=== PATIENT | male | born 1985 | race Caucasian/White ===

== ENCOUNTER 2022-11-05 22:30 | Emergency (ER) | payer BC, MEDICAID ==
[~2022-11-05] VITALS: Ht 182.9 cm; Wt 88.5 kg
[2022-11-05 23:59] LABS: BASOPHILS % (AUTO) 0.1 % (0.0-2.0); EOSINOPHILS % (AUTO) 0.3 % (0.0-6.0); HEMATOCRIT 39 % (39-51); HEMOGLOBIN 12.8 g/dL (13.5-17.5); LYMPHOCYTES % (AUTO) 11.8 % (20.0-44.0); MEAN CORPUSCULAR HEMOGLOBIN 29 PG (26.0-33.0); MEAN CORPUSCULAR HGB CONC 33 g/dl (31.0-36.0); MEAN CORPUSCULAR VOLUME 88 fL (80-96); MONOCYTES # (AUTO) 0.7 K/uL (0.1-1.30); NEUTROPHILS # (AUTO) 6.4 K/uL (1.8-8.9); NEUTROPHILS % (AUTO) 78.8 % (43.0-81.0); PLATELET COUNT (AUTO) 379 K/uL (150-450); RED BLOOD CELL COUNT(AUTO) 4.46 MIL/uL (4.5-6.0); RED CELL DISTRIBUTION WIDTH 14.4 % (11.5-15.0); WHITE BLOOD COUNT (AUTO) 8.2 K/uL (4.3-11.0)
[2022-11-06 00:05] LABS: APPEARANCE,URINE CLEAR (CLEAR); BILIRUBIN,URINE 1+ (NEGATIVE); BLOOD, URINE NEGATIVE Ery/uL (NEGATIVE); COLOR,URINE DARK YELLOW (YELLOW); KETONES,URINE TRACE mg/dL (NEGATIVE); LEUKOCYTE ESTERASE ,URINE NEGATIVE (NEGATIVE); NITRITE, URINE NEGATIVE (NEGATIVE); PH,URINE 5.5 (5.0-8.0); PROTEIN,URINE 2+ mg/dl (NEGATIVE); UGLUCOSE NEGATIVE (NEGATIVE)
[2022-11-06 00:17] LABS: CARBON DIOXIDE 23 mmol/L (21-32); CHLORIDE 101 mmol/L (98-107); CREATININE 1.3 mg/dL (0.6-1.3); GLUCOSE 87 mg/dL (74-106); POTASSIUM 4.2 mmol/L (3.5-5.1); SODIUM SERUM 136 mmol/L (136-145); UREA NITROGEN, BLOOD 18 mg/dL (7-18)
[2022-11-06 00:31] LABS: AMPHETAMINE, URINE NEGATIVE (NEGATIVE); BARBITURATE, URINE NEGATIVE (NEGATIVE); BENZODIAZEPINE, URINE NEGATIVE (NEGATIVE); COCCAINE, URINE NEGATIVE (NEGATIVE); OPIATE, URINE NEGATIVE (NEGATIVE); PHENCYCLIDINE SCREEN,URINE NEGATIVE (NEGATIVE)
[2022-11-06 00:36] LABS: ACETAMINOPHEN 0 ug/ml (10-30); ALANINE AMINOTRANSFERASE 83 U/L (12-78); ALBUMIN 3.2 g/dL (3.4-5.0); ALCOHOL, BLOOD < 3 mg/dL (0-10); ALKALINE PHOSPHATASE 40 U/L (46-116); ASPARTATE AMINOTRANSFERASE 103 U/L (15-37); BILIRUBIN,DIRECT 0.3 mg/dL (0.0-0.2); BILIRUBIN,TOTAL 0.8 mg/dL (0.2-1.0); CANNABINOID, URINE POSITIVE (NEGATIVE); SALICYLATE < 2.8 mg/dL (2.8-20.0); TOTAL PROTEIN, SERUM 7.1 g/dL (6.4-8.2)
[2022-11-06] MEDS ORDERED: OLANZAPINE 10 MG VIAL IM ONE ×2 (01:50→02:00)
[2022-11-06] MEDS ORDERED: diphenhydrAMINE HCL 50 MG/ML VIAL ONE ×2 (01:50→21:49)
[2022-11-06] MEDS ORDERED: diphenhydrAMINE HCL 50 MG/ML VIAL IM ONE ×2 (02:00→22:00)
[2022-11-06] MEDS ORDERED: OLANZAPINE 5 MG TABLET PO ONE (08:30)
[2022-11-06] MEDS ORDERED: OLANZAPINE 5 MG TABLET ONE (08:48)
[2022-11-06] MEDS ORDERED: LORAZEPAM 1 MG TABLET ONE (12:27)
[2022-11-06] MEDS ORDERED: LORAZEPAM 1 MG TABLET PO ONE (12:30)
[2022-11-06] MEDS ORDERED: HALOPERIDOL LACTATE INJ 5 MG/ML VIAL ONE (21:49)
[2022-11-06] MEDS ORDERED: LORAZEPAM INJ 2 MG/ML VIAL ONE (21:50)
[2022-11-06] MEDS ORDERED: LORAZEPAM INJ 2 MG/ML VIAL IV ONE (22:00)
[2022-11-06] MEDS ORDERED: HALOPERIDOL LACTATE INJ 5 MG/ML VIAL IM ONE (22:00)
[2022-11-07] MEDS ORDERED: LORAZEPAM INJ 2 MG/ML VIAL ONE ×3 (05:30→22:10)
[2022-11-07] MEDS ORDERED: LORAZEPAM INJ 2 MG/ML VIAL IV ONE (05:30)
[2022-11-07] MEDS ORDERED: OLANZAPINE 10 MG VIAL IM ONE ×2 (09:22→09:30)
[2022-11-07] MEDS ORDERED: LORAZEPAM INJ 2 MG/ML VIAL IM ONE ×2 (09:30→22:00)
[2022-11-07] MEDS ORDERED: OLANZAPINE 5 MG TABLET ONE (16:53)
[2022-11-07] MEDS: OLANZAPINE ZYDIS 5 MG TAB.RAPDIS PO SCH (17:00)
[2022-11-07] MEDS ORDERED: diphenhydrAMINE HCL 25 MG CAPSULE PO ONE (20:30)
[2022-11-07] MEDS ORDERED: diphenhydrAMINE HCL 50 MG CAPSULE ONE (20:42)
[2022-11-07] MEDS ORDERED: HALOPERIDOL LACTATE INJ 5 MG/ML VIAL IM ONE (22:00)
[2022-11-07] MEDS ORDERED: HALOPERIDOL LACTATE INJ 5 MG/ML VIAL ONE (22:10)
[2022-11-08] MEDS ORDERED: OLANZAPINE 5 MG TABLET ONE ×2 (09:45→17:32)
[2022-11-08] MEDS: OLANZAPINE ZYDIS 5 MG TAB.RAPDIS PO SCH ×2 (09:47→17:30)
[2022-11-08] MEDS ORDERED: diphenhydrAMINE HCL 50 MG/ML VIAL ONE (10:30)
[2022-11-08] MEDS ORDERED: HALOPERIDOL LACTATE INJ 5 MG/ML VIAL IM ONE (10:30)
[2022-11-08] MEDS ORDERED: diphenhydrAMINE HCL 50 MG/ML VIAL IM ONE (10:30)
[2022-11-08] MEDS ORDERED: LORAZEPAM INJ 2 MG/ML VIAL IM ONE (10:30)
[2022-11-08] MEDS ORDERED: HALOPERIDOL LACTATE INJ 5 MG/ML VIAL ONE (10:31)
[2022-11-08] MEDS ORDERED: LORAZEPAM INJ 2 MG/ML VIAL ONE (10:31)
[2022-11-08] MEDS ORDERED: DIVALPROEX SODIUM 500 MG TABLET.DR PO ONE (17:23)
[2022-11-08] MEDS: DIVALPROEX SODIUM 500 MG TABLET.DR PO SCH (17:27)
[2022-11-09] MEDS ORDERED: LORAZEPAM INJ 2 MG/ML VIAL ONE (00:48)
[2022-11-09] MEDS ORDERED: HALOPERIDOL LACTATE INJ 5 MG/ML VIAL ONE (00:48)
[2022-11-09] MEDS ORDERED: diphenhydrAMINE HCL 50 MG/ML VIAL ONE (00:48)
[2022-11-09] MEDS ORDERED: HALOPERIDOL LACTATE INJ 5 MG/ML VIAL IM ONE (01:00)
[2022-11-09] MEDS ORDERED: diphenhydrAMINE HCL 50 MG/ML VIAL IM ONE (01:00)
[2022-11-09] MEDS ORDERED: LORAZEPAM INJ 2 MG/ML VIAL IV ONE (01:00)
[2022-11-09] MEDS ORDERED: DIVALPROEX SODIUM 500 MG TABLET.DR PO ONE (07:49)
[2022-11-09] MEDS ORDERED: OLANZAPINE 5 MG TABLET ONE (07:49)
[2022-11-09] MEDS: DIVALPROEX SODIUM 500 MG TABLET.DR PO SCH (07:54)
[2022-11-09] MEDS: OLANZAPINE ZYDIS 5 MG TAB.RAPDIS PO SCH (07:55)
[2022-11-09 13:43] VITALS: BP 126/78; TEMP 98.1; O2SAT 99
== END 2022-11-09 11:57 | disposition home or self-care (01) ==
LOC: ER 22:42 → EDBD 22:42 → ER 11-09 11:57
DX: F29 Unspecified psychosis not due to a substance or known physiological condition (principal); F12.929 Cannabis use, unspecified with intoxication, unspecified; Z20.822 Contact with and (suspected) exposure to COVID-19
CPT/HCPCS: 36415; 80048-TC; 80076-TC; 85025-TC; C9803; G0480; J1200; J1630; J2060; J3230; J3490; Q0163